=== PATIENT | female | born 1995 | race American Indian/Alaskan Native ===

== ENCOUNTER 2017-09-05 10:31 | Emergency (ER) | payer MEDICAID, OTHER ==
[2017-09-05 10:43] VITALS: BP 111/61; RESP 18; TEMP 98.6
[2017-09-05 10:50] VITALS: O2SAT 98
[2017-09-05 11:50] VITALS: PULSE 74
[2017-09-05 11:55] LABS: BASO % 0.6 % (0.0-2.0); EOS # 0.1 K/uL (0.0-0.7); EOS % 0.8 % (0.0-4.0); HEMOGLOBIN 12.8 g/dL (12.0-16.0); LYMPH % 26.4 % (20.0-40.0); MEAN CELL VOLUME 86.9 fl (81.0-99.0); MEAN CORPUSCULAR HEMOGLOBIN 29.2 pg (27.0-31.0); MEAN CORPUSCULAR HGB CONC 33.6 g/dL (33.0-37.0); MEAN PLATELET VOLUME 8.6 fl (7.2-11.7); MONO # 0.6 K/uL (0.0-0.8); MONO % 7.9 % (0.0-10.0); NEUT # 4.8 K/uL (1.8-7.0); NEUT % 64.3 % (50.0-75.0); NRBC % 0.1 % (0.0-0.0); RBC 4.38 Mil/uL (3.80-5.20); WHITE BLOOD COUNT 7.4 K/uL (4.8-10.8)
--- NOTE | 2017-09-05 12:03 | ED PDOC ---
HPI: Chest Pain Time Seen by Provider: 09/05/17 11:20 Chief Complaint (Nursing): Chest Pain Chief Complaint (Provider): chest pain History Per: Patient History/Exam Limitations: no limitations Onset/Duration Of Symptoms: Days (2) Current Symptoms Are (Timing): Still Present Severity: Severe Pain Scale Rating Of: 8 Quality: Sharp Associated Symptoms: Other (slight dizziness) Modifying Factors: None Exacerbating Factors: None Alleviating Factors: None Additional History Per: Patient Additional Complaint(s): pt p/w + ~ 2 days onset of waxing and waning substernal chest pain, at most pain is 8/10; pt states + dizziness/weakness, also noted epigastric pain, pt states no fever/chills/sweats, no sob/palpitations, no n/v, no numbness/tingling , no urinary/bowel changes, no fall/trauma/sick contact, no travel; pt denied LOC pt denied other complaints pt is here for further eval PCP: none pt with hx of acute gastritis Family hx: no one in the family with acute MO < 50; no family hx of DVT/PE - Risk Factors PE Risk Factors: Neg: Previous DVT, , Recent Major Trauma Past Medical History Reviewed: Historical Data, Nursing Documentation, Vital Signs Vital Signs: Last Vital Signs Temp 98.6 F 09/05/17 10:42 Pulse 74 09/05/17 11:45 Resp 18 09/05/17 10:42 BP 111/61 09/05/17 10:42 Pulse Ox 98 09/05/17 15:43 - Medical History PMH: Gastritis - Family History Family History: States: Unknown Family Hx - Immunization History Hx Tetanus Toxoid Vaccination: No Hx Influenza Vaccination: No Hx Pneumococcal Vaccination: No - Home Medications Home Medications: Ambulatory Orders Medication Instructions Recorded Ibuprofen 600 mg PO Q6 PRN #15 tablet 10/19/15 Famotidine [Pepcid] 20 mg PO BID #30 tab 09/05/17 Ibuprofen [Motrin] 400 mg PO QID PRN #30 tab 09/05/17 - Allergies Allergies/Adverse Reactions: Allergies Allergy/AdvReac Type Severity Reaction Status Date / Time No Known Allergies Allergy Verified 09/05/17 10:48 SUDHA Risk Score for UA/NSTEMI - SUDHA Risk Score Age > 64: NO 3 or more CAD Risk Factors: NO Known CAD (Stenosis greater than 50%): NO Aspirin use in past 7 days: NO Severe Angina: NO EKG ST changes greater than 0.5mm: NO Positive Cardiac Marker: NO SUDHA Score: 0 Risk %: 5% Curb-65 Severity Score - CURB-65 Severity Score Confusion: No Bun >19mg/dl (>7mmol/L): No Respiratory Rate greater than/equal to 30: No Systolic BP <90 or Diastolic BP less than/equal 60mmHg: No Age >64: No Curb-65 Score: 0 Percentage 30-day mortality: 0.6% Wells Criteria for PE - Wells Criteria for Pulmonary Embolism Clinical Signs and Symptoms of DVT: No P.E is #1 Diagnosis, or Equally Likely: No Heart Rate >100: No Immobilization at least 3 days;Surgery previous 4 weeks: No Previous, objectively diagnosed PE or DVT: No Hemoptysis: No Malignancy w/treatment within 6 months, or palliative: No Total Score: 0 Review of Systems ROS Statement: Except As Marked, All Systems Reviewed And Found Negative Constitutional: Positive for: Weakness. Negative for: Fever Eyes: Negative for: Pain ENT: Negative for: Ear Pain Cardiovascular: Positive for: Chest Pain, Light Headedness Respiratory: Negative for: Cough, SOB with Exertion Gastrointestinal: Positive for: Abdominal Pain (epigastric pain). Negative for : Nausea, Vomiting Genitourinary Female: Negative for: Dysuria Musculoskeletal: Negative for: Neck Pain Skin: Negative for: Rash Neurological: Positive for: Weakness. Negative for: Headache Physical Exam - Reviewed Nursing Documentation Reviewed: Yes Vital Signs Reviewed: Yes (WNL) - Physical Exam Appears: Positive for: Well (NAD, alert/awake, GCS = 15, oriented x 3, mildly uncomfortable; cooperative, resting in bed), Non-toxic Head Exam: Positive for: ATRAUMATIC, NORMAL INSPECTION Skin: Positive for: Normal Color (cap refill < 1sec, no ulcerations, no petechiae, no rashes) Eye Exam: Positive for: Normal appearance, EOMI, PERRL ENT: Positive for: Normal ENT Inspection Neck: Positive for: Normal (no nuchal rigidity, no meningeal signs, no midline tenderness, no step off), Trachea Midline Cardiovascular/Chest: Positive for: Regular Rate, Rhythm (+S1, +S2). Negative for: Murmur Respiratory: Positive for: Normal Breath Sounds, Other (CTA b/l, no w/r/r) Gastrointestinal/Abdominal: Positive for: Normal Exam (mild epigastric tenderness, no martinez's sign, no mcburney's point tenderness, no masses/rebound/ guarding/rigidity) Back: Positive for: Normal Inspection. Negative for: L CVA Tenderness, R CVA Tenderness Extremity: Positive for: Normal ROM. Negative for: Deformity Neurologic/Psych: Positive for: Alert, buggy runner II-XII - Laboratory Results Result Diagrams: 09/05/17 11:43 09/05/17 11:43 - ECG ECG: Positive for: Interpreted By Me Interpretation Of ECG: NSR at 65 bpm, normal axis, no ectopy, no st-t changes, normal EKG; no old ekg to compare with O2 Sat by Pulse Oximetry: 98 - Radiology X-Ray: Read By Radiologist X-Ray Interpretation: No Acute Disease - Progress ED Course And Treament: HISTORY: substernal chest pain COMPARISON: Comparison made with prior chest radiograph 10/19/2015. TECHNIQUE: Chest PA and lateral FINDINGS: LUNGS: No active pulmonary disease. PLEURA: No significant pleural effusion identified. No pneumothorax apparent. CARDIOVASCULAR: Normal. OSSEOUS STRUCTURES: No significant abnormalities. VISUALIZED UPPER ABDOMEN: Normal. OTHER FINDINGS: None. IMPRESSION: No active disease. 3:00pm - pt felt improved vital signs WNL pt is made aware of her medical results pt is encouraged no smoking pt will f/u as directed pt will be discharged home Re-evaluation Time: 15:15 Condition: Improved Medical Decision Making Medical Decision Making: Impression: atypical chest pain, epigastric pain i have consider all the differential diagnosis regarding pt's chief medical complaints/clinical findings, including but are not limited to: atypical chest pain A/P: atypical chest pain, epigastric pain - ekg - labs - observe - supportive care Disposition - Clinical Impression Clinical Impression: Chest pain, atypical, Epigastric pain - Patient ED Disposition Is Patient to be Admitted: No Counseled Patient/Family Regarding: Studies Performed, Diagnosis, Need For Followup, Rx Given, Smoking Cessation - Disposition Referrals: Lakshmi Mccray MD [Medical Doctor] - [facility] [Outside] Disposition: Routine/Home Disposition Time: 15:46 Condition: STABLE Additional Instructions: Make sure to see your doctor in 1-2 days DRINK PLENTY OF FLUIDS DONT SMOKE if you smoke AVOID spicy foods AVOID alcohol AVOID sodas/caffeine products take your medications as prescribed RETURN TO ED IF worse pain, cant breath, persistent vomiting, high fever >101- 102 for hours, altered behavior, slurr speech, facial changes, focal weakness ( arm/leg or both), unable to urinate, heavy/persistent bleeding, passing out, chest pain, or other medical emergencies Prescriptions: Famotidine [Pepcid] 20 mg PO BID #30 tab Ibuprofen [Motrin] 400 mg PO QID PRN #30 tab PRN Reason: Pain, Mild (1-3) Instructions: Chest Pain That Is Not Caused by the Heart (DC) Forms: [employer] (Pashto) Print Language: URUGUAYAN
[2017-09-05 12:05] LABS: ALB/GLOB RATIO 1.1 (1.0-2.1); ALBUMIN 4.2 g/dL (3.5-5.0); ALT/SGPT 38 U/L (9-52); AST/SGOT 36 U/L (14-36); BLOOD UREA NITROGEN 10 mg/dl (7-17); CALCIUM 9.6 mg/dL (8.4-10.2); GFR AFRICAN-AMERICAN > 60; GFR NON-AFRICAN AMERICAN > 60; LIPASE 38 U/L (23-300)
[2017-09-05 12:42] LABS: SQUAMOUS EPITHIAL 4 /hpf (0-5); URINE BACTERIA RARE (<OCC); URINE BILIRUBIN NEGATIVE (NEGATIVE); URINE BLOOD NEGATIVE (NEGATIVE); URINE CLARITY SLIGHTY-CLOUDY (Clear); URINE COLOR YELLOW (YELLOW); URINE GLUCOSE (UA) NEG (Normal); URINE LEUKOCYTE ESTERASE NEG Leu/uL (Negative); URINE PROTEIN NEGATIVE (NEGATIVE); URINE UROBILINOGEN 0.2-1.0 mg/dL (0.2-1.0)
--- NOTE | 2017-09-05 14:28 | RAD ---
HISTORY: substernal chest pain COMPARISON: Comparison made with prior chest radiograph 10/19/2015. TECHNIQUE: Chest PA and lateral FINDINGS: LUNGS: No active pulmonary disease. PLEURA: No significant pleural effusion identified. No pneumothorax apparent. CARDIOVASCULAR: Normal. OSSEOUS STRUCTURES: No significant abnormalities. VISUALIZED UPPER ABDOMEN: Normal. OTHER FINDINGS: None. IMPRESSION: No active disease.
--- NOTE | 2017-09-06 18:17 | CARD ---
APPROVED REPORT EKG Measurement Heart [id number] <Conclusion> Normal sinus rhythm with sinus arrhythmia Normal ECG
== END 2017-09-05 16:10 | disposition home or self-care (01) ==
LOC: H.ER 10:31
DX: R07.89 Other chest pain (principal)
CPT/HCPCS: 71046; 80053; 81003; 81025; 83690; 83735; 85025; 85378; 93005; 96374; 99284; J1885